=== PATIENT | female | born 1960 | race Caucasian/White ===

== ENCOUNTER → 2020-05-03 | Outpatient (CLI) | payer OTHER ==
[~2020-05-03] MED LIST: ASPIRIN81 MG PO; ATARAX PO; BACTRIM D.S. TAB1 EA PO; BRINTELLIX10 MG PO; CALCIUM + D3 E1 EACH PO; CALCIUM 600 +1 EAC4 PO; CALCIUM600 MG PO; CELEBREX200 MG PO; CLARITIN10 MG PO; COLACE100 MG PO; CRESTOR PO; CYCLOBENZAPRINE10 MG PO; DOXYCYCLINE MO100 M1 PO; ELAVIL 10 MG TA10 MG PO; FISH OIL 1,0001 EAC4 PO; FOSAMAX70 MG PO; HYDROCODON-ACE1 EAC2 PO; HYDROXYZINE HCL10 MG PO; LEVAQUIN500 MG PO; LEXAPRO20 MG PO; MACROBID 100 M100 MG PO; MIRALAX17 GM PO; MULTIVITAMINS1 EAC1 PO; NAPROXEN 250 M250 MG PO; NORCO 5-325 TA1 EACH PO; OMEPRAZOLE20 MG PO; PERCOCET 5-3251 EACH PO; PROTONIX40 MG PO; TYLENOL ARTHRITIS PO; VITAMIN B-12100 MCG PO; VITAMIN B-12500 MCG PO; VITAMIN C500 M3 PO; VITAMIN D1000 UNI1 PO; WELLBUTRIN XL300 MG PO
== END ==
LOC: EXRD 05-02 11:30 → KOH-I 14:54 → EXRD 15:00
DX: M19.90 Unspecified osteoarthritis, unspecified site (principal)
CPT/HCPCS: 77080

== ENCOUNTER → 2020-07-11 | Outpatient (CLI) | payer OTHER | LOC: US 10:27 | DX: R10.11 Right upper quadrant pain (principal); K80.20 Calculus of gallbladder without cholecystitis without obstruction | CPT/HCPCS: 76705 ==

== ENCOUNTER → 2020-07-20 | Day surgery (SDC) | payer OTHER | END | disposition home or self-care (01) | LOC: OR 07:28 | DX: K80.10 Calculus of gallbladder with chronic cholecystitis without obstruction (principal); I10 Essential (primary) hypertension; E78.2 Mixed hyperlipidemia; F41.9 Anxiety disorder, unspecified; K21.9 Gastro-esophageal reflux disease without esophagitis; M19.90 Unspecified osteoarthritis, unspecified site; F32.9 Major depressive disorder, single episode, unspecified; Z79.899 Other long term (current) drug therapy | CPT/HCPCS: J0690; J1100; J2250; J2405; J2704; J2710; J3010; J7030; J7120 ==

== ENCOUNTER → 2020-10-31 | Outpatient (CLI) | payer OTHER | LOC: KOH-I 09:19 | DX: M79.672 Pain in left foot (principal); M79.671 Pain in right foot; M19.072 Primary osteoarthritis, left ankle and foot; M19.071 Primary osteoarthritis, right ankle and foot | CPT/HCPCS: 73630 ==

== ENCOUNTER → 2021-03-02 | Outpatient (CLI) | payer OTHER ==
[~2021-03-02] MED LIST changes: +ATIVAN0.5 MG PO; -BRINTELLIX10 MG PO; +BUSPAR 10MG10 MG PO; +LINZESS72 MCG PO; +MULTI-VITAMIN1 EACH PO; +VORT10TA PO
[2021-03-02 12:54] LABS: HEMOGLOBIN 12.6 gm/dl (12.3-15.3); RED BLOOD COUNT 4.36 M/UL (4.00-5.10); WHITE BLOOD COUNT 7.3 K/UL (4.5-11.0)
[2021-03-02 13:19] LABS: BUN/CREATININE RATIO 22 (0-10)
== END ==
LOC: OPSV2 12:00
PROVIDERS: Podiatrist Foot & Ankle Surgery
DX: Z01.818 Encounter for other preprocedural examination (principal); M20.11 Hallux valgus (acquired), right foot
CPT/HCPCS: 71046; 80048; 85027; 93005

== ENCOUNTER → 2021-03-10 | Day surgery (SDC) | payer OTHER ==
[~2021-03-10] VITALS: Ht 170.2 cm; Wt 84.4 kg
[~2021-03-10] MED LIST changes: +ATARAX SYRUP2 MG/ML PO
== END | disposition home or self-care (01) ==
LOC: OR 09:26
DX: M20.11 Hallux valgus (acquired), right foot (principal); M19.071 Primary osteoarthritis, right ankle and foot; M89.9 Disorder of bone, unspecified; M25.374 Other instability, right foot; G58.8 Other specified mononeuropathies; E78.5 Hyperlipidemia, unspecified; K21.9 Gastro-esophageal reflux disease without esophagitis; M19.90 Unspecified osteoarthritis, unspecified site; F41.9 Anxiety disorder, unspecified; F32.A Depression, unspecified; Z90.710 Acquired absence of both cervix and uterus; Z79.899 Other long term (current) drug therapy
CPT/HCPCS: 36415; 73630; 76000; 82306; C1713; J0690; J1100; J1885; J2250; J2405; J2704; J2795; J3010; J3370; J7040; J7120

== ENCOUNTER → 2021-03-20 | Outpatient (CLI) | payer OTHER | LOC: KOH-I 09:08 | DX: M79.671 Pain in right foot (principal) | CPT/HCPCS: 73630 ==

== ENCOUNTER → 2021-04-04 | Outpatient (CLI) | payer OTHER | LOC: KOH-I 08:48 | DX: M79.671 Pain in right foot (principal); Z96.7 Presence of other bone and tendon implants | CPT/HCPCS: 73630 ==

== ENCOUNTER → 2021-04-24 | Outpatient (CLI) | payer OTHER | LOC: KOH-I 09:14 | DX: M79.671 Pain in right foot (principal) | CPT/HCPCS: 73630 ==

== ENCOUNTER → 2021-05-15 | Outpatient (CLI) | payer OTHER | LOC: KOH-I 08:39 | DX: M79.671 Pain in right foot (principal) | CPT/HCPCS: 73630 ==

== ENCOUNTER → 2021-06-15 | Outpatient (CLI) | payer OTHER ==
[~2021-06-15] MED LIST changes: -ATARAX PO; +LINZESS145 MCG PO; -LINZESS72 MCG PO; +NORVASC5 MG PO; +VITAMIN D21250 MCG PO
[2021-06-15 08:42] LABS: HEMOGLOBIN 12.1 gm/dl (12.3-15.3); RED BLOOD COUNT 4.25 M/UL (4.00-5.10); WHITE BLOOD COUNT 6.9 K/UL (4.5-11.0)
[2021-06-15 09:05] LABS: BUN/CREATININE RATIO 30 (0-10)
== END ==
LOC: OPSV2 07:51
PROVIDERS: Podiatrist Foot & Ankle Surgery
DX: Z01.812 Encounter for preprocedural laboratory examination (principal)
CPT/HCPCS: 36415; 80048; 85027

== ENCOUNTER → 2021-06-29 | Outpatient (CLI) | payer OTHER | LOC: KOH-I 09:49 | DX: M79.672 Pain in left foot (principal) | CPT/HCPCS: 73630 ==

== ENCOUNTER → 2021-07-17 | Outpatient (CLI) | payer OTHER | LOC: KOH-I 09:16 | DX: M79.672 Pain in left foot (principal); Z98.1 Arthrodesis status | CPT/HCPCS: 73630 ==

== ENCOUNTER → 2021-07-31 | Outpatient (CLI) | payer OTHER | LOC: KOH-I 10:02 | DX: M79.672 Pain in left foot (principal); Z98.890 Other specified postprocedural states | CPT/HCPCS: 73630 ==

== ENCOUNTER → 2021-08-21 | Outpatient (CLI) | payer OTHER | LOC: KOH-I 09:42 | DX: M79.672 Pain in left foot (principal); Z47.89 Encounter for other orthopedic aftercare | CPT/HCPCS: 73630 ==

== ENCOUNTER → 2021-09-21 | Outpatient (CLI) | payer OTHER | LOC: MRI 08:43 | DX: H90.3 Sensorineural hearing loss, bilateral (principal) | CPT/HCPCS: 36415; 70553; 82565; 84520; A9577 ==

== ENCOUNTER → 2021-10-03 | Outpatient (CLI) | payer OTHER | LOC: KOH-I 08:22 | DX: M79.672 Pain in left foot (principal); Z98.890 Other specified postprocedural states | CPT/HCPCS: 73630 ==